=== PATIENT | male | born 1960 | race Caucasian/White ===

== ENCOUNTER 2018-05-10 18:26 | Emergency (ER) | payer MEDICAID ==
[~2018-05-10] VITALS: Ht 177.8 cm; Wt 77.2 kg
[~2018-05-10 18:26] MED LIST: CLIN300C85 PO; HYDR-569 PO; NAPR-1144 PO; NO HOME MEDS
[2018-05-10 18:43] VITALS: BP 133/79
== END 2018-05-10 19:22 | disposition left against medical advice (07) ==
LOC: ER 18:27
DX: R11.0 Nausea (principal); Z53.21 Procedure and treatment not carried out due to patient leaving prior to being seen by health care provider

== ENCOUNTER 2018-08-18 23:59 | Emergency (ER) | payer MEDICAID ==
[~2018-08-18] VITALS: Ht 182.9 cm; Wt 74.0 kg
[~2018-08-18 23:59] MED LIST changes: +HYDR-4383 PO; -HYDR-569 PO
[2018-08-19] MEDS ORDERED: HYDROcodone/acetaminophen 10/325mg tab PO ONE (00:15)
[2018-08-19] MEDS ORDERED: clindamycin phosphate 150mg/ml inj. IM ONE (00:15)
[2018-08-19] MEDS ORDERED: SULF1TAB49 PO (00:18)
[2018-08-19 00:30] VITALS: BP 132/93
== END 2018-08-19 00:49 | disposition home or self-care (01) ==
LOC: ER 23:59
DX: L03.011 Cellulitis of right finger (principal); F15.10 Other stimulant abuse, uncomplicated; Z88.0 Allergy status to penicillin; Z79.899 Other long term (current) drug therapy; Z86.14 Personal history of Methicillin resistant Staphylococcus aureus infection
CPT/HCPCS: 96372; 99283; J3490

== ENCOUNTER 2020-11-17 03:22 | Emergency (ER) | payer MEDICAID ==
[~2020-11-17] VITALS: Ht 182.9 cm; Wt 85.0 kg
[~2020-11-17 03:22] MED LIST changes: +CLIN-97 PO; -CLIN300C85 PO
[2020-11-17 03:25] VITALS: BP 143/95
--- NOTE | 2020-11-17 03:31 | NUR ---
HE WALKED OUT OF TRIAGE AFTER HE SAW HIS BP. HE SAID HE'S GOING TO GO TELL HIS BROTHER TO WAIT. BUT I THINK HE LEFT.
== END 2020-11-17 03:35 | disposition left against medical advice (07) ==
LOC: ER 03:22
DX: I10 Essential (primary) hypertension (principal); Z53.21 Procedure and treatment not carried out due to patient leaving prior to being seen by health care provider

== ENCOUNTER 2021-01-26 10:24 | Emergency (ER) | payer MEDICAID ==
[~2021-01-26] VITALS: Ht 182.9 cm; Wt 72.7 kg
[2021-01-26] MEDS ORDERED: iohexol 300mg/ml 100ml inj. ONE (11:30)
[2021-01-26 11:35] LABS: BASOPHILS # (AUTO) 0.1 X10'3 (0-0.2); BASOPHILS % (AUTO) 0.5 % (0-1); EOSINOPHILS % (AUTO) 0.1 % (0-6); HEMATOCRIT 36.4 % (42.0-52.0); HEMOGLOBIN 12.3 g/dl (14.0-17.9); LYMPHOCYTES # (AUTO) 0.6 X10'3 (1.1-4.8); LYMPHOCYTES % (AUTO) 4.1 % (21-51); MEAN CORPUSCULAR HEMOGLOBIN 28.5 PG (27.0-31.0); MEAN CORPUSCULAR HGB CONC 33.7 g/dL (33.0-36.5); MEAN CORPUSCULAR VOLUME 84.5 FL (78-98); MEAN PLATELET VOLUME 8.1 FL (7.4-10.4); MONOCYTES # (AUTO) 0.6 X10'3 (0-0.9); MONOCYTES % (AUTO) 4.3 % (2-12); PLATELET COUNT 237 X10'3 (140-440); RED CELL DISTRIBUTION WIDTH 13.3 % (11.5-14.5); WHITE BLOOD COUNT 14.3 X10'3 (4.5-11.0)
[2021-01-26 11:51] LABS: CLARITY,URINE CLOUDY (Clear); COLOR,URINE YELLOW (Yellow); GLUCOSE, URINE NEGATIVE (Neg); KETONES,URINE 15 mg/dl (Neg); LEUKOCYTE ESTERASE ,URINE NEGATIVE (Neg); NITRITES, URINE NEGATIVE (Neg); OCCULT BLOOD,URINE LARGE (Neg); PROTEIN,URINE 100 mg/dl (Neg)
[2021-01-26 11:56] LABS: ALANINE AMINOTRANSFERASE 18 U/L (12-78); ALBUMIN 2.2 G/DL (3.4-5.0); ALBUMIN/GLOBULIN RATIO 0.5 (1.1-1.5); ALKALINE PHOSPHATASE 127 IU/L (46-116); ANION GAP 10 (8-16); ASPARTATE AMINO TRANSFERASE 23 U/L (10-37); BILIRUBIN,TOTAL 0.4 MG/DL (0.1-1.0); BLOOD UREA NITROGEN 19 MG/DL (7-18); BUN/CREATININE RATIO 23.2 (5.4-32.0); CALCIUM 8.3 MG/DL (8.5-10.1); CHLORIDE 94 MMOL/L (99-107); CREATININE 0.82 MG/DL (0.60-1.10); GLUCOSE 110 MG/DL (70-104); POTASSIUM 3.2 MMOL/L (3.5-5.1); SODIUM 132 MMOL/L (135-145); TOTAL CARBON DIOXIDE 27.7 MMOL/L (24-32); TOTAL PROTEIN 6.9 G/DL (6.4-8.2); eGFR > 90 ML/MIN
[2021-01-26 11:58] LABS: TROPONIN I < 0.04 NG/ML (0.0-0.05)
[2021-01-26 12:32] LABS: UA COLLECTION TYPE URINAL
[2021-01-26 12:34] LABS: BACTERIA,URINE FEW /HPF (Neg); RBC,URINE 20-50 /HPF (0-2); SQUAMOUS EPITHELIAL CELL,UR FEW /LPF (FEW); WBC,URINE 0-4 /HPF (0-4)
[2021-01-26 12:35] LABS: MUCUS STRANDS FEW /LPF (Neg)
[2021-01-26] MEDS ORDERED: ringers solution, lacted 1,000 ML IV ONE (12:35)
[2021-01-26] MEDS ORDERED: morphine 10mg/ml inj. IV ONE (12:35)
[2021-01-26] MEDS ORDERED: HYDR-3965 PO (13:35)
[2021-01-26 14:30] VITALS: BP 122/52
[2021-01-27] MEDS ORDERED: NO HOME MEDS (16:30)
== END 2021-01-26 14:32 | disposition home or self-care (01) ==
LOC: ER 10:25
DX: S22.41XA Multiple fractures of ribs, right side, initial encounter for closed fracture (principal); S32.000A Wedge compression fracture of unspecified lumbar vertebra, initial encounter for closed fracture; J94.2 Hemothorax; M54.89 Other dorsalgia; F15.90 Other stimulant use, unspecified, uncomplicated; Z86.14 Personal history of Methicillin resistant Staphylococcus aureus infection; Z72.89 Other problems related to lifestyle; Z88.0 Allergy status to penicillin; Z79.2 Long term (current) use of antibiotics; Z79.899 Other long term (current) drug therapy; W11.XXXA Fall on and from ladder, initial encounter; Y93.89 Activity, other specified; Y92.89 Other specified places as the place of occurrence of the external cause; Y99.8 Other external cause status
CPT/HCPCS: 36415; 70450; 71260; 72125; 74177; 80053; 81001; 84484; 85025; 86885; 86900; 86901; 96361; 96374; 99285; J2270; Q9967; J7120

== ENCOUNTER 2021-01-27 12:35 | Inpatient (IN) | payer MEDICAID ==
[~2021-01-27] VITALS: Ht 182.9 cm; Wt 64.4 kg
[~2021-01-27 12:35] MED LIST changes: +HYDR-3965 PO
--- NOTE | 2021-01-27 12:49 | NUR ---
ACS PROTOCOL ORDERED, CALLED FOR EKG
--- NOTE | 2021-01-27 12:50 | NUR ---
[facility]S,[place] [address]
[2021-01-27] MEDS ORDERED: morphine 10mg/ml inj. IV ONE (13:25)
[2021-01-27] MEDS ORDERED: ondansetron/PF 4mg/2ml inj IV ONE (13:25)
[2021-01-27] MEDS ORDERED: morphine 10mg/ml inj. IM ONE (13:50)
[2021-01-27] MEDS ORDERED: ondansetron/PF 4mg/2ml inj IM ONE (13:50)
[2021-01-27 13:52] LABS: BASOPHILS % (AUTO) 0.1 % (0-1); EOSINOPHILS % (AUTO) 0.1 % (0-6); HEMATOCRIT 35.1 % (42.0-52.0); HEMOGLOBIN 11.7 g/dl (14.0-17.9); LYMPHOCYTES # (AUTO) 0.6 X10'3 (1.1-4.8); LYMPHOCYTES % (AUTO) 2.9 % (21-51); MEAN CORPUSCULAR HEMOGLOBIN 28.4 PG (27.0-31.0); MEAN CORPUSCULAR HGB CONC 33.5 g/dL (33.0-36.5); MEAN CORPUSCULAR VOLUME 84.9 FL (78-98); MONOCYTES # (AUTO) 1.3 X10'3 (0-0.9); MONOCYTES % (AUTO) 6.1 % (2-12); NEUTROPHILS # (AUTO) 18.9 X10'3 (1.8-7.7); NEUTROPHILS % (AUTO) 90.8 % (42-75); PLATELET COUNT 266 X10'3 (140-440); RED BLOOD COUNT 4.13 X10'6 (4.70-6.10); RED CELL DISTRIBUTION WIDTH 13.6 % (11.5-14.5); WHITE BLOOD COUNT 20.8 X10'3 (4.5-11.0)
--- NOTE | 2021-01-27 13:58 | NUR ---
2 RNS JUAN M AND [place] ATTEMPTED IV X 4 TIMES
--- NOTE | 2021-01-27 13:58 | NUR ---
DR OCHOA AWARE NO IV
[2021-01-27 14:23] LABS: MICROCYTOSIS 1+; PLATELET ESTIMATE NORMAL; TOTAL CELLS COUNTED 100
[2021-01-27 14:24] LABS: ALANINE AMINOTRANSFERASE 27 U/L (12-78); ALBUMIN 2.4 G/DL (3.4-5.0); ALBUMIN/GLOBULIN RATIO 0.5 (1.1-1.5); ALKALINE PHOSPHATASE 136 IU/L (46-116); ANION GAP 6 (8-16); ASPARTATE AMINO TRANSFERASE 36 U/L (10-37); BILIRUBIN,TOTAL 0.6 MG/DL (0.1-1.0); BLOOD UREA NITROGEN 13 MG/DL (7-18); BUN/CREATININE RATIO 14.8 (5.4-32.0); CALCIUM 8.6 MG/DL (8.5-10.1); CHLORIDE 92 MMOL/L (99-107); CREATININE 0.88 MG/DL (0.60-1.10); GLUCOSE 132 MG/DL (70-104); POTASSIUM 4.2 MMOL/L (3.5-5.1); SODIUM 127 MMOL/L (135-145); TOTAL CARBON DIOXIDE 28.6 MMOL/L (24-32); TOTAL PROTEIN 7.1 G/DL (6.4-8.2); eGFR 89 ML/MIN
[2021-01-27] MEDS ORDERED: bisacodyl 10mg suppository rectal RC PRN (15:20)
[2021-01-27] MEDS ORDERED: ondansetron/PF 4mg/2ml inj IV PRN (15:20)
[2021-01-27] MEDS ORDERED: magnesium Cl slow-release 64mg tablet PO PRN (15:20)
[2021-01-27] MEDS ORDERED: mag hydrox/Alum hydrox/simeth 30ml oral suspension PO PRN (15:20)
[2021-01-27] MEDS ORDERED: magnesium 2GM in 50ml NS 50 ML IV PRN (15:20)
[2021-01-27] MEDS ORDERED: acetaminophen 325mg tablet PO PRN ×2 (15:20)
[2021-01-27] MEDS ORDERED: magnesium hydroxide 30ml (MOM) UD suspension PO PRN (15:20)
[2021-01-27] MEDS ORDERED: HYDROcodone/acetaminophen 5mg/325mg tablet PO PRN (15:20)
[2021-01-27] MEDS ORDERED: acetaminophen 650mg rectal suppository RC PRN (15:20)
[2021-01-27] MEDS ORDERED: magnesium 4gm in 100ml NS 100 ML IV PRN (15:20)
[2021-01-27] MEDS ORDERED: potassium Cl 20 mEq SR tablet PO PRN ×2 (15:20)
[2021-01-27] MEDS ORDERED: HYDROcodone/acetaminophen 10/325mg tab PO PRN (15:20)
[2021-01-27] MEDS ORDERED: normal saline 1000ml 1,000 ML IV SCH (15:20)
[2021-01-27] MEDS ORDERED: ipratropium/albuterol 3ml nebule NEB PRN (15:20)
[2021-01-27] MEDS ORDERED: morphine 2 MG/ML inj. syringe IV PRN ×2 (15:20)
[2021-01-27] MEDS ORDERED: diphenhydrAMINE 25mg capsule PO PRN (15:20)
[2021-01-27] MEDS ORDERED: potassium Cl 40MEQ/1/2NS 520ml 520 ML IV PRN ×2 (15:20)
[2021-01-27 15:45] LABS: HEMOGLOBIN A1C 6.5 % (4.5-6.2)
[2021-01-27 16:07] VITALS: BP 102/55
[2021-01-27] MEDS ORDERED: NO HOME MEDS (16:30)
--- NOTE | 2021-01-27 16:38 | NUR ---
PATIENT IN HALLWAY WALKING WNL WITH ALL HIS CLOTHES ON AFTER I GAVE HIM PAIN MEDICINE AND HOOKED HIM UP TO HIS IV OF NS. HE ATTEMPTED TO LEAVE WITH HIS PIV IN HIS FOOT. SECURITY CALLED. PLATE GAUGER AND WILL, TECH AND I ESCORTED PATIENT BACK TO HIS ROOM WHERE PLATE GAUGER DEBBIE REMOVED PIV FROM FOOT. PATIENT ADVISED THAT LEAVING THE ER COULD RESULT IN HIS . PATIENT SAID "I WANT TO SMOKE". PATIENT OFFERED A NICOTINE PATCH. PATIENT AMBULATED OUT OF ER WNL AFTER SIGNING AMA FORM.
--- NOTE | 2021-01-27 16:39 | NUR ---
DR MARIA AWARE OF PATIENT LEAVING AMA
[2021-01-27] MEDS ORDERED: K and/or MAG REPLACEMENT MC SCH (20:00)
== END 2021-01-27 17:00 | disposition left against medical advice (07) | DRG 347 ==
LOC: ER 12:35 → ED HOLD 15:18 → EDBEDREQ 17:23
PROVIDERS: ADMIT Family Medicine; ATTEND Family Medicine
DX: M54.9 Dorsalgia, unspecified (principal); W18.39XA Other fall on same level, initial encounter; Y93.89 Activity, other specified; Y92.89 Other specified places as the place of occurrence of the external cause; Y99.8 Other external cause status
CPT/HCPCS: 36415; 71045; 80053; 83036; 84484; 85007; 85025; 86885; 86900; 86901; 93005; 94760; G0378; J2270; J2405; J7030

== ENCOUNTER 2021-08-11 20:43 | Emergency (ER) | payer MEDICAID ==
[~2021-08-11] VITALS: Ht 182.9 cm; Wt 81.8 kg
[~2021-08-11 20:43] MED LIST changes: -CLIN-97 PO; -HYDR-3965 PO; -HYDR-4383 PO; -NAPR-1144 PO
[2021-08-11] MEDS ORDERED: iohexol 300mg/ml 100ml inj. ONE (22:15)
[2021-08-11 23:08] LABS: BASOPHILS # (AUTO) 0.1 X10'3 (0-0.2); BASOPHILS % (AUTO) 0.9 % (0-1); EOSINOPHILS # (AUTO) 0.1 X10'3 (0-0.9); EOSINOPHILS % (AUTO) 0.8 % (0-6); HEMATOCRIT 36.3 % (42.0-52.0); HEMOGLOBIN 11.9 g/dl (14.0-17.9); LYMPHOCYTES # (AUTO) 1.2 X10'3 (1.1-4.8); LYMPHOCYTES % (AUTO) 15.3 % (21-51); MEAN CORPUSCULAR HEMOGLOBIN 26.7 PG (27.0-31.0); MEAN CORPUSCULAR HGB CONC 32.8 g/dL (33.0-36.5); MEAN CORPUSCULAR VOLUME 81.6 FL (78-98); MEAN PLATELET VOLUME 9.1 FL (7.4-10.4); MONOCYTES # (AUTO) 0.8 X10'3 (0-0.9); MONOCYTES % (AUTO) 10.6 % (2-12); NEUTROPHILS # (AUTO) 5.7 X10'3 (1.8-7.7); NEUTROPHILS % (AUTO) 72.4 % (42-75); PLATELET COUNT 288 X10'3 (140-440); RED BLOOD COUNT 4.45 X10'6 (4.70-6.10); RED CELL DISTRIBUTION WIDTH 15.9 % (11.5-14.5); WHITE BLOOD COUNT 7.9 X10'3 (4.5-11.0)
[2021-08-11 23:19] LABS: ALANINE AMINOTRANSFERASE 269 U/L (12-78); ALBUMIN/GLOBULIN RATIO 0.6 (1.1-1.5); ALKALINE PHOSPHATASE 247 IU/L (46-116); ANION GAP 7 (8-16); ASPARTATE AMINO TRANSFERASE 86 U/L (10-37); BILIRUBIN,TOTAL 0.6 MG/DL (0.1-1.0); BLOOD UREA NITROGEN 20 MG/DL (7-18); BUN/CREATININE RATIO 20.8 (5.4-32.0); CALCIUM 8.8 MG/DL (8.5-10.1); CHLORIDE 103 MMOL/L (99-107); CREATININE 0.96 MG/DL (0.60-1.10); POTASSIUM 4.5 MMOL/L (3.5-5.1); SODIUM 137 MMOL/L (135-145); TOTAL CARBON DIOXIDE 27.3 MMOL/L (24-32); TOTAL PROTEIN 7.8 G/DL (6.4-8.2); eGFR 80 ML/MIN
[2021-08-11 23:22] LABS: GLUCOSE 116 MG/DL (70-104)
[2021-08-11 23:32] LABS: CLARITY,URINE CLEAR (Clear); COLOR,URINE YELLOW (Yellow); GLUCOSE, URINE NEGATIVE (Neg); KETONES,URINE NEGATIVE (Neg); LEUKOCYTE ESTERASE ,URINE NEGATIVE (Neg); NITRITES, URINE NEGATIVE (Neg); OCCULT BLOOD,URINE SMALL (Neg); PH,URINE 5.5 (4.8-8.0); PROTEIN,URINE TRACE mg/dl (Neg)
[2021-08-11 23:37] LABS: UA COLLECTION TYPE CLN CATCH MIDSTREAM
[2021-08-11 23:41] LABS: WBC,URINE 0-4 /HPF (0-4)
[2021-08-11 23:42] LABS: BACTERIA,URINE NONE SEEN /HPF (Neg); MUCUS STRANDS MANY /LPF (Neg); RBC,URINE NONE SEEN /HPF (0-2); SPERM MODERATE /HPF (NEGATIVE); SQUAMOUS EPITHELIAL CELL,UR FEW /LPF (FEW)
[2021-08-12] MEDS ORDERED: LEVO750T46 PO (00:17)
[2021-08-12] MEDS ORDERED: levoFLOXACIN 750MG TABLET PO ONE (00:20)
[2021-08-12 00:49] VITALS: BP 125/91
== END 2021-08-12 00:45 | disposition home or self-care (01) ==
LOC: ER 20:43
DX: J90 Pleural effusion, not elsewhere classified (principal); J18.8 Other pneumonia, unspecified organism; F15.10 Other stimulant abuse, uncomplicated; Z88.0 Allergy status to penicillin; Z20.822 Contact with and (suspected) exposure to COVID-19
CPT/HCPCS: 36415; 71045; 71260; 80053; 81001; 83605; 84145; 85025; 87040; 87635; 99285; C9803; Q9967

== ENCOUNTER 2021-08-14 07:48 | Inpatient (IN) | payer MEDICAID ==
[~2021-08-14] VITALS: Ht 182.9 cm; Wt 81.7 kg
[~2021-08-14 07:48] MED LIST changes: +LEVO750T46 PO
[2021-08-14] MEDS ORDERED: aspirin 81mg tab.chew PO ONE (07:55)
[2021-08-14] MEDS ORDERED: normal saline 1000ML IV soln IV ONE (08:10)
[2021-08-14 08:33] LABS: HEMOGLOBIN 12.4 g/dl (14.0-17.9); LYMPHOCYTES # (AUTO) 0.9 X10'3 (1.1-4.8); MEAN CORPUSCULAR HEMOGLOBIN 26.7 PG (27.0-31.0); NEUTROPHILS # (AUTO) 6.7 X10'3 (1.8-7.7); WHITE BLOOD COUNT 8.3 X10'3 (4.5-11.0)
[2021-08-14 08:38] LABS: BASOPHILS # (AUTO) 0.1 X10'3 (0-0.2); BASOPHILS % (AUTO) 0.8 % (0-1); EOSINOPHILS % (AUTO) 0.6 % (0-6); HEMATOCRIT 37.6 % (42.0-52.0); LYMPHOCYTES % (AUTO) 11.4 % (21-51); MEAN CORPUSCULAR HGB CONC 33.1 g/dL (33.0-36.5); MEAN CORPUSCULAR VOLUME 80.7 FL (78-98); MEAN PLATELET VOLUME 8.3 FL (7.4-10.4); MONOCYTES # (AUTO) 0.6 X10'3 (0-0.9); MONOCYTES % (AUTO) 7.1 % (2-12); NEUTROPHILS % (AUTO) 80.1 % (42-75); PLATELET COUNT 351 X10'3 (140-440); RED BLOOD COUNT 4.65 X10'6 (4.70-6.10)
[2021-08-14 09:12] LABS: ALANINE AMINOTRANSFERASE 172 U/L (12-78); ALBUMIN/GLOBULIN RATIO 0.6 (1.1-1.5); ALKALINE PHOSPHATASE 220 IU/L (46-116); ANION GAP 9 (8-16); ASPARTATE AMINO TRANSFERASE 41 U/L (10-37); BILIRUBIN,TOTAL 0.8 MG/DL (0.1-1.0); BLOOD UREA NITROGEN 18 MG/DL (7-18); CALCIUM 8.1 MG/DL (8.5-10.1); CHLORIDE 99 MMOL/L (99-107); CREATININE 1.06 MG/DL (0.60-1.10); SODIUM 134 MMOL/L (135-145); TOTAL CARBON DIOXIDE 25.7 MMOL/L (24-32); TOTAL PROTEIN 8.3 G/DL (6.4-8.2); eGFR 72 ML/MIN
[2021-08-14 09:14] LABS: MAGNESIUM 1.9 MG/DL (1.5-2.4)
[2021-08-14 09:15] LABS: GLUCOSE 227 MG/DL (70-104)
[2021-08-14] MEDS ORDERED: vancomycin/NS 1 GM ADD-VANTAGE 250 ML IV ONE (09:50)
[2021-08-14] MEDS ORDERED: levoFLOXACIN-Levaquin 750MG/D5 150 ML IV ONE (09:50)
[2021-08-14] MEDS ORDERED: ondansetron/PF 4mg/2ml inj IV PRN (09:55)
[2021-08-14] MEDS ORDERED: magnesium 2GM in 50ml NS 50 ML IV PRN (09:55)
[2021-08-14] MEDS ORDERED: acetaminophen 325mg tablet PO PRN (09:55)
[2021-08-14] MEDS ORDERED: normal saline 1000ml 1,000 ML IV SCH (09:55)
[2021-08-14] MEDS ORDERED: potassium CL 10mEq/100ml bag 100 ML IV PRN (09:55)
[2021-08-14] MEDS ORDERED: mag hydrox/Alum hydrox/simeth 30ml oral suspension PO PRN (09:55)
[2021-08-14] MEDS ORDERED: ondansetron 4mg rapidly disintigrating tab PO PRN (09:55)
[2021-08-14] MEDS ORDERED: metoclopramide 5 mg/ml inj IV PRN (09:55)
[2021-08-14] MEDS ORDERED: magnesium Cl slow-release 64mg tablet PO PRN (09:55)
[2021-08-14] MEDS ORDERED: potassium Cl 20 mEq SR tablet PO PRN ×2 (09:55)
[2021-08-14] MEDS ORDERED: acetaminophen 650mg rectal suppository RC PRN (09:55)
[2021-08-14] MEDS ORDERED: magnesium hydroxide 30ml (MOM) UD suspension PO PRN (09:55)
[2021-08-14] MEDS ORDERED: magnesium 4gm in 100ml NS 100 ML IV PRN (09:55)
[2021-08-14 10:21] LABS: PARTIAL THROMBOPLASTIN TIME 26 SECONDS (22-32)
[2021-08-14] MEDS: vancomycin/NS 1 GM ADD-VANTAGE 250 ML IV SCH (11:46)
[2021-08-14] MEDS ORDERED: LEVO750T46 PO (13:14)
[2021-08-14 13:18] LABS: CLARITY,URINE CLEAR (Clear); COLOR,URINE YELLOW (Yellow); GLUCOSE, URINE NEGATIVE (Neg); KETONES,URINE NEGATIVE (Neg); LEUKOCYTE ESTERASE ,URINE NEGATIVE (Neg); NITRITES, URINE NEGATIVE (Neg); OCCULT BLOOD,URINE SMALL (Neg); PROTEIN,URINE TRACE mg/dl (Neg)
[2021-08-14 13:22] LABS: UA COLLECTION TYPE VOIDED
[2021-08-14] MEDS ORDERED: furosemide 40mg/4ml inj IV ONE (13:35)
[2021-08-14] MEDS ORDERED: PERFLUTREN PROTEIN-A MICROSPHR (Optison) 0.22 MG/ML 3ML VIAL IV PRN (13:35)
[2021-08-14] MEDS ORDERED: LORazepam 2 mg/ml vial IV PRN (13:35)
[2021-08-14] MEDS ORDERED: haloperidol lactate 5mg/ml inj IM PRN (13:35)
[2021-08-14] MEDS ORDERED: haloperidol 5mg tablet PO PRN (13:35)
[2021-08-14] MEDS ORDERED: nicotine 14mg patch - 24hr TD ONE (13:40)
[2021-08-14 14:14] LABS: MUCUS STRANDS MANY /LPF (Neg)
[2021-08-14 14:15] LABS: HYALINE CASTS 0-3 /LPF (NEGATIVE)
[2021-08-14 14:18] LABS: BACTERIA,URINE FEW /HPF (Neg); RBC,URINE 0-2 /HPF (0-2); WBC,URINE 0-4 /HPF (0-4)
[2021-08-14 14:19] LABS: TRANSITIONAL EPI CELLS,URINE FEW /HPF
[2021-08-14 14:20] LABS: SQUAMOUS EPITHELIAL CELL,UR FEW /LPF (FEW)
[2021-08-14 14:24] LABS: FINE GRANULAR CAST 0-3 /LPF (NEGATIVE)
[2021-08-14] MEDS: benzonatate 100mg capsule PO PRN (16:59)
[2021-08-14] MEDS: LORazepam 1 MG tablet PO PRN (18:12)
[2021-08-14] MEDS ORDERED: pneumococcal 23-VAL P-sac vacc 25 mcg/0.5ml vial IMVAC ONE (19:50)
[2021-08-14 19:53] VITALS: BP 132/92
[2021-08-14] MEDS ORDERED: FLU VACC QS2021-22(6MOS UP)/PF 60 MCG/0.5 ML SYRINGE IM ONE (19:55)
[2021-08-14] MEDS: K and/or MAG REPLACEMENT MC SCH (20:00)
[2021-08-14] MEDS: docusate sod 100mg capsule PO SCH (20:14)
[2021-08-14] MEDS: furosemide 40mg/4ml inj IV SCH (20:15)
[2021-08-14] MEDS: lactobacillus rhamnosus 10,000 MMU CELLS/CAPSULE PO SCH (20:19)
[2021-08-14] MEDS ORDERED: THIAMINE IV SCH (21:00)
[2021-08-14] MEDS ORDERED: thiamine 100mg/ml 2ml inj. IV SCH (21:00)
[2021-08-14] MEDS ORDERED: WATER IV SCH (21:00)
[2021-08-14] MEDS ORDERED: DEXTROSE 5% IV SCH (21:00)
[2021-08-14] MEDS ORDERED: VANCOMYCIN LEVEL IV ONE (23:30)
[2021-08-15] VITALS: BP 126/91
[2021-08-15] MEDS: guaiFENesin 200 MG/10 ML oral syrup UD cup PO PRN ×3 (03:04→14:24)
--- NOTE | 2021-08-15 06:24 | NUR ---
Report given , questions answered and plan of care reviewed with Jo WILSON .
[2021-08-15 07:11] LABS: BASOPHILS # (AUTO) 0.1 X10'3 (0-0.2); BASOPHILS % (AUTO) 1.4 % (0-1); EOSINOPHILS % (AUTO) 0.2 % (0-6); HEMATOCRIT 35.3 % (42.0-52.0); HEMOGLOBIN 11.6 g/dl (14.0-17.9); LYMPHOCYTES # (AUTO) 0.9 X10'3 (1.1-4.8); LYMPHOCYTES % (AUTO) 9.7 % (21-51); MEAN CORPUSCULAR HEMOGLOBIN 26.4 PG (27.0-31.0); MEAN CORPUSCULAR HGB CONC 32.9 g/dL (33.0-36.5); MEAN CORPUSCULAR VOLUME 80.4 FL (78-98); MEAN PLATELET VOLUME 9.8 FL (7.4-10.4); MONOCYTES # (AUTO) 0.7 X10'3 (0-0.9); MONOCYTES % (AUTO) 7.8 % (2-12); NEUTROPHILS # (AUTO) 7.8 X10'3 (1.8-7.7); NEUTROPHILS % (AUTO) 80.9 % (42-75); PLATELET COUNT 235 X10'3 (140-440); RED CELL DISTRIBUTION WIDTH 15.7 % (11.5-14.5); WHITE BLOOD COUNT 9.6 X10'3 (4.5-11.0)
[2021-08-15] MEDS: LORazepam 1 MG tablet PO PRN (07:32)
[2021-08-15] MEDS: docusate sod 100mg capsule PO SCH ×2 (07:32→19:44)
[2021-08-15] MEDS: multivitamins, therapeutics tablet PO SCH (07:32)
[2021-08-15] MEDS: lactobacillus rhamnosus 10,000 MMU CELLS/CAPSULE PO SCH ×2 (07:33→19:44)
[2021-08-15] MEDS: CefTRIAXone/D5W-Rocephin 1gm 50 ML IV SCH (07:33)
[2021-08-15] MEDS: furosemide 40mg/4ml inj IV SCH ×2 (07:33→19:44)
[2021-08-15] MEDS: nicotine 14mg patch - 24hr TD SCH (07:33)
[2021-08-15 07:34] LABS: ALANINE AMINOTRANSFERASE 129 U/L (12-78); ALBUMIN 2.9 G/DL (3.4-5.0); ALBUMIN/GLOBULIN RATIO 0.6 (1.1-1.5); ALKALINE PHOSPHATASE 196 IU/L (46-116); ANION GAP 11 (8-16); ASPARTATE AMINO TRANSFERASE 34 U/L (10-37); BILIRUBIN,TOTAL 0.7 MG/DL (0.1-1.0); BLOOD UREA NITROGEN 19 MG/DL (7-18); BUN/CREATININE RATIO 17.9 (5.4-32.0); CALCIUM 8.6 MG/DL (8.5-10.1); CHLORIDE 104 MMOL/L (99-107); CREATININE 1.06 MG/DL (0.60-1.10); POTASSIUM 4.1 MMOL/L (3.5-5.1); SODIUM 139 MMOL/L (135-145); TOTAL CARBON DIOXIDE 24.4 MMOL/L (24-32); TOTAL PROTEIN 7.9 G/DL (6.4-8.2); eGFR 72 ML/MIN
[2021-08-15] MEDS: thiamine inj. 200 MG in normal saline 100ml IV soln 100 ML IV SCH ×3 (07:34→21:39)
[2021-08-15 07:36] LABS: GLUCOSE 122 MG/DL (70-104)
[2021-08-15 08:00] VITALS: BP 133/94
[2021-08-15] MEDS: K and/or MAG REPLACEMENT MC SCH ×2 (08:00→20:00)
--- NOTE | 2021-08-15 09:15 | NUR ---
Dr Bello rounded to see pt however pt was unarousable to answer questions. ordered that lobectomy records from [facility] be obtained. This nurse also attempted to awaken pt for a signature on records release form, but pt is still unable to awaken at this time. Records release from [facility] faxed to [facility] HIM dept. Pt's RR 24, no distress observed. KATIE Osorio was made aware.
[2021-08-15] MEDS ORDERED: COVID-19 VACC, MRNA(PFIZER)/PF--BNT162b2 syringe IMVAC ONE (10:00)
[2021-08-15 11:00] VITALS: BP 125/85
[2021-08-15] MEDS: vancomycin/NS 1 GM ADD-VANTAGE 250 ML IV SCH ×2 (14:24)
[2021-08-15] MEDS ORDERED: iohexol 300mg/ml 100ml inj. ONE (16:22)
[2021-08-15 18:00] VITALS: BP 121/79
[2021-08-15] MEDS: lactose-reduced food (Ensure High Protein) 237ml bottle PO SCH (18:00)
--- NOTE | 2021-08-15 18:48 | NUR ---
Patient in room NOE 360. I have received report from KATIE Oviedo and had the opportunity to ask questions and assume patient care.
--- NOTE | 2021-08-15 18:49 | NUR ---
I have received report from KATIE Osorio and had the opportunity to ask questions and assume patient care.
[2021-08-15] MEDS: carVEDilol 3.125mg tablet PO SCH (19:44)
[2021-08-15] MEDS: heparin, porcine 5000 units/ml vial SQ SCH (19:45)
[2021-08-15] MEDS ORDERED: VANCOMYCIN LEVEL IV ONE (23:30)
[2021-08-16] VITALS: BP 122/88
[2021-08-16] MEDS: benzonatate 100mg capsule PO PRN (00:15)
[2021-08-16] MEDS: LORazepam 1 MG tablet PO PRN ×3 (00:15→21:02)
[2021-08-16] MEDS: vancomycin/NS 1 GM ADD-VANTAGE 250 ML IV SCH ×4 (00:16→13:25)
[2021-08-16] MEDS: heparin, porcine 5000 units/ml vial SQ SCH ×3 (00:16→16:25)
[2021-08-16 01:24] VITALS: BP 131/89
[2021-08-16 06:00] VITALS: BP 118/77
--- NOTE | 2021-08-16 06:11 | NUR ---
I agree with KATIE Seopoacher wringer operator, assessments, and report given to KATIE Osorio
--- NOTE | 2021-08-16 06:35 | NUR ---
Problems reprioritized. Patient report given, questions answered & plan of care reviewed with KATIE Osorio.
--- NOTE | 2021-08-16 07:15 | NUR ---
PAGER ID: [phone] MESSAGE: re: 360 Th[place]: pt lung sounds worsened from yesterday. new onset CHF, and recent lobectomy. please call, may need tele ~Jo gomes 3surgical [id number]
[2021-08-16] MEDS: K and/or MAG REPLACEMENT MC SCH ×2 (08:00→20:00)
[2021-08-16] MEDS ORDERED: lisinopril 5mg tablet PO SCH (08:00)
[2021-08-16] MEDS: furosemide 40mg/4ml inj IV SCH ×2 (08:00→21:03)
[2021-08-16] MEDS: lactose-reduced food (Ensure High Protein) 237ml bottle PO SCH ×3 (08:00→18:00)
[2021-08-16] MEDS: carVEDilol 3.125mg tablet PO SCH ×2 (08:01→21:02)
[2021-08-16] MEDS: multivitamins, therapeutics tablet PO SCH (08:01)
[2021-08-16] MEDS: CefTRIAXone/D5W-Rocephin 1gm 50 ML IV SCH (08:02)
[2021-08-16] MEDS: thiamine inj. 200 MG in normal saline 100ml IV soln 100 ML IV SCH ×3 (08:02→21:19)
[2021-08-16] MEDS: lactobacillus rhamnosus 10,000 MMU CELLS/CAPSULE PO SCH ×2 (08:03→21:02)
[2021-08-16] MEDS: nicotine 14mg patch - 24hr TD SCH (08:03)
[2021-08-16] MEDS: docusate sod 100mg capsule PO SCH ×2 (08:03→21:02)
[2021-08-16 09:47] LABS: BASOPHILS # (AUTO) 0.1 X10'3 (0-0.2); BASOPHILS % (AUTO) 0.9 % (0-1); EOSINOPHILS % (AUTO) 0.2 % (0-6); HEMATOCRIT 40.4 % (42.0-52.0); HEMOGLOBIN 13.2 g/dl (14.0-17.9); LYMPHOCYTES # (AUTO) 0.6 X10'3 (1.1-4.8); LYMPHOCYTES % (AUTO) 9.7 % (21-51); MEAN CORPUSCULAR HEMOGLOBIN 26.2 PG (27.0-31.0); MEAN CORPUSCULAR HGB CONC 32.6 g/dL (33.0-36.5); MEAN CORPUSCULAR VOLUME 80.4 FL (78-98); MEAN PLATELET VOLUME 8.7 FL (7.4-10.4); MONOCYTES # (AUTO) 0.6 X10'3 (0-0.9); MONOCYTES % (AUTO) 10.8 % (2-12); NEUTROPHILS # (AUTO) 4.7 X10'3 (1.8-7.7); NEUTROPHILS % (AUTO) 78.4 % (42-75); PLATELET COUNT 199 X10'3 (140-440); RED BLOOD COUNT 5.03 X10'6 (4.70-6.10); RED CELL DISTRIBUTION WIDTH 16.1 % (11.5-14.5)
--- NOTE | 2021-08-16 09:59 | NUR ---
PAGER ID: [phone] MESSAGE: [id number] anna new onset CHF, 30RR would you like pt transferred to tele? ~ Jo WILSON 3surgical [id number]
[2021-08-16] MEDS ORDERED: COVID-19 VACC, MRNA(PFIZER)/PF--BNT162b2 syringe IMVAC ONE (10:00)
--- NOTE | 2021-08-16 10:27 | NUR ---
TO obtained from dr english for transfer to tele and midline placement. PICC tobias fernandez
[2021-08-16 11:00] VITALS: BP 118/80
[2021-08-16 11:23] LABS: ALANINE AMINOTRANSFERASE 125 U/L (12-78); ALBUMIN 3.1 G/DL (3.4-5.0); ALBUMIN/GLOBULIN RATIO 0.6 (1.1-1.5); ALKALINE PHOSPHATASE 209 IU/L (46-116); ANION GAP 8 (8-16); ASPARTATE AMINO TRANSFERASE 53 U/L (10-37); BILIRUBIN,TOTAL 0.9 MG/DL (0.1-1.0); BLOOD UREA NITROGEN 25 MG/DL (7-18); BUN/CREATININE RATIO 21.6 (5.4-32.0); CALCIUM 8.5 MG/DL (8.5-10.1); CHLORIDE 96 MMOL/L (99-107); CREATININE 1.16 MG/DL (0.60-1.10); GLUCOSE 182 MG/DL (70-104); SODIUM 133 MMOL/L (135-145); TOTAL CARBON DIOXIDE 28.7 MMOL/L (24-32); TOTAL PROTEIN 8.6 G/DL (6.4-8.2); eGFR 64 ML/MIN
[2021-08-16 11:25] LABS: POTASSIUM 3.7 MMOL/L (3.5-5.1)
[2021-08-16] MEDS ORDERED: vancomycin/NS 500MG ADD-VANT 100 ML IV ONE (15:00)
[2021-08-16] MEDS: guaiFENesin 200 MG/10 ML oral syrup UD cup PO PRN (16:25)
--- NOTE | 2021-08-16 16:52 | NUR ---
TO for keyonna from dr ureña Addendum: 08/16/21 at 1655 by Jo Carrizales RN please disregard, wrong pt
[2021-08-16 18:00] VITALS: BP 134/86
--- NOTE | 2021-08-16 18:38 | NUR ---
report called to Nasima gomes ACCE
--- NOTE | 2021-08-16 18:42 | NUR ---
Patient in room NOE 360. I have received report from Jo WILSON and had the opportunity to ask questions and assume patient care.
--- NOTE | 2021-08-16 18:48 | NUR ---
Patient in room NOE 360. I have received report from KATIE Osorio and had the opportunity to ask questions and assume patient care.
--- NOTE | 2021-08-16 18:48 | NUR ---
pt to move to room 317. Addendum: 08/16/21 at 1904 by Gabbi Carmona RN pt to move to room 312.
--- NOTE | 2021-08-16 18:49 | NUR ---
I have received report from KATIE Osorio and had the opportunity to ask questions and assume patient care.
--- NOTE | 2021-08-16 21:15 | NUR ---
Patient transferred to ACCE to the care of Latha Del Real RN. Information was updated. Patient was transferred via wheelchair, with all belongings
[2021-08-16 21:21] LABS: CHOL/HDL RATIO 3.1 (0.00-4.99); CHOLESTEROL 100 MG/DL (0-200); HDL CHOLESTEROL 32 MG/DL (35-60); LDL CHOLESTEROL 60 MG/DL (50-100); TRIGLYCERIDES 46 MG/DL (20-135)
[2021-08-16 22:00] VITALS: BP 108/83
[2021-08-17] MEDS: heparin, porcine 5000 units/ml vial SQ SCH (00:25)
[2021-08-17] MEDS: LORazepam 1 MG tablet PO PRN (01:09)
[2021-08-17] MEDS: guaiFENesin 200 MG/10 ML oral syrup UD cup PO PRN (01:12)
[2021-08-17 02:00] VITALS: BP 116/83
--- NOTE | 2021-08-17 06:28 | NUR ---
Problems reprioritized. Patient report given, questions answered & plan of care reviewed with Gabrielle WILSON.
--- NOTE | 2021-08-17 06:30 | NUR ---
Patient in room MED 312. I have received report from KATIE PEREZ, and had the opportunity to ask questions and assume patient care.
--- NOTE | 2021-08-17 06:51 | NUR ---
PAGE SENT PAGER ID: [phone] MESSAGE: [phone], POLLY STANLEY HAS JUST LEFT AMA. EDUCATED PT ON MEDICAL NEEDS. PT DISCONNECTED HIMSELF AND LEFT. THANK YOU, LUCIANA Matamoros [phone]
[2021-08-17 07:17] LABS: BASOPHILS # (AUTO) 0.1 X10'3 (0-0.2); BASOPHILS % (AUTO) 1.5 % (0-1); EOSINOPHILS % (AUTO) 0.6 % (0-6); HEMATOCRIT 37.3 % (42.0-52.0); HEMOGLOBIN 12.2 g/dl (14.0-17.9); LYMPHOCYTES # (AUTO) 1.3 X10'3 (1.1-4.8); LYMPHOCYTES % (AUTO) 23.5 % (21-51); MEAN CORPUSCULAR HEMOGLOBIN 26.4 PG (27.0-31.0); MEAN CORPUSCULAR HGB CONC 32.7 g/dL (33.0-36.5); MEAN CORPUSCULAR VOLUME 80.8 FL (78-98); MEAN PLATELET VOLUME 9.5 FL (7.4-10.4); MONOCYTES # (AUTO) 0.8 X10'3 (0-0.9); NEUTROPHILS # (AUTO) 3.4 X10'3 (1.8-7.7); NEUTROPHILS % (AUTO) 60.4 % (42-75); PLATELET COUNT 235 X10'3 (140-440); RED BLOOD COUNT 4.61 X10'6 (4.70-6.10); RED CELL DISTRIBUTION WIDTH 15.8 % (11.5-14.5); WHITE BLOOD COUNT 5.6 X10'3 (4.5-11.0)
[2021-08-17 07:30] LABS: ALANINE AMINOTRANSFERASE 107 U/L (12-78); ALBUMIN 2.7 G/DL (3.4-5.0); ALBUMIN/GLOBULIN RATIO 0.5 (1.1-1.5); ALKALINE PHOSPHATASE 172 IU/L (46-116); ANION GAP 7 (8-16); ASPARTATE AMINO TRANSFERASE 71 U/L (10-37); BILIRUBIN,TOTAL 0.7 MG/DL (0.1-1.0); BLOOD UREA NITROGEN 26 MG/DL (7-18); BUN/CREATININE RATIO 22.4 (5.4-32.0); CALCIUM 8.6 MG/DL (8.5-10.1); CHLORIDE 101 MMOL/L (99-107); CREATININE 1.16 MG/DL (0.60-1.10); GLUCOSE 104 MG/DL (70-104); POTASSIUM 3.6 MMOL/L (3.5-5.1); SODIUM 137 MMOL/L (135-145); TOTAL CARBON DIOXIDE 28.8 MMOL/L (24-32); TOTAL PROTEIN 7.7 G/DL (6.4-8.2); eGFR 64 ML/MIN
[2021-08-18] MEDS ORDERED: VANCOMYCIN LEVEL IV ONE (00:30)
[2021-08-18 10:59] LABS: HBSAG SCREEN Negative (Negative); HEP A AB, IGM Negative (Negative); HEPATITIS C ANTIBODY >11.0 s/co ratio (0.0-0.9)
[2021-08-19] MEDS ORDERED: thiamine 100mg tablet PO SCH (08:00)
[2021-08-19] MEDS ORDERED: folic acid 1mg tablet PO SCH (08:00)
== END 2021-08-17 06:45 | disposition left against medical advice (07) | DRG 194 ==
LOC: ER 07:49 → ED HOLD 09:58 → UNDOADMIN 09:58 → ED HOLD 13:39 → SUR 3N 18:41 → ED HOLD 18:41 → MED 3N 08-16 21:15
PROVIDERS: ADMIT Family Medicine; ATTEND Family Medicine
DX: I11.0 Hypertensive heart disease with heart failure (principal); J96.00 Acute respiratory failure, unspecified whether with hypoxia or hypercapnia; N17.0 Acute kidney failure with tubular necrosis; I50.21 Acute systolic (congestive) heart failure; E44.0 Moderate protein-calorie malnutrition; E87.1 Hypo-osmolality and hyponatremia; R14.0 Abdominal distension (gaseous); I42.7 Cardiomyopathy due to drug and external agent; R74.01 Elevation of levels of liver transaminase levels; K76.9 Liver disease, unspecified; L03.119 Cellulitis of unspecified part of limb; R07.89 Other chest pain; F17.210 Nicotine dependence, cigarettes, uncomplicated; F10.10 Alcohol abuse, uncomplicated; F15.90 Other stimulant use, unspecified, uncomplicated; Z53.29 Procedure and treatment not carried out because of patient's decision for other reasons; Z59.00 Homelessness unspecified; Z86.14 Personal history of Methicillin resistant Staphylococcus aureus infection; Z88.0 Allergy status to penicillin; Z90.49 Acquired absence of other specified parts of digestive tract; Z71.6 Tobacco abuse counseling; Z68.24 Body mass index [BMI] 24.0-24.9, adult
CPT/HCPCS: 0001A; 36415; 36569; 71045; 71250; 76937; 80053; 80061; 80074; 80202; 81001; 83605; 83735; 83880; 84132; 84145; 84484; 85025; 85610; 85730; 87040; 87081; 91300; 93005; 93306; 96374; 99285; G0378; J0696; J1644; J1940; J1956; J2060; J3370; J3411; J3490; J7030; J7060; Q9967

== ENCOUNTER 2024-06-18 19:35 | Emergency (ER) | payer MEDICAID ==
[~2024-06-18] VITALS: Ht 182.9 cm; Wt 68.7 kg
[~2024-06-18 19:35] MED LIST changes: -LEVO750T46 PO; +LEVO750T68 PO; -NO HOME MEDS; +ORPH100T4 PO
[2024-06-18 20:18] LABS: BASOPHILS # (AUTO) 0.1 X10'3 (0-0.2); BASOPHILS % (AUTO) 0.8 % (0-1); EOSINOPHILS # (AUTO) 0.1 X10'3 (0-0.9); EOSINOPHILS % (AUTO) 2.3 % (0-6); HEMATOCRIT 44.6 % (42.0-52.0); HEMOGLOBIN 15.3 g/dl (14.0-17.9); LYMPHOCYTES # (AUTO) 1.3 X10'3 (1.1-4.8); LYMPHOCYTES % (AUTO) 20.6 % (21-51); MEAN CORPUSCULAR HEMOGLOBIN 29.3 PG (27.0-31.0); MEAN CORPUSCULAR HGB CONC 34.3 g/dL (33.0-36.5); MEAN CORPUSCULAR VOLUME 85.5 FL (78-98); MEAN PLATELET VOLUME 9.4 FL (7.4-10.4); MONOCYTES # (AUTO) 1.3 X10'3 (0-0.9); MONOCYTES % (AUTO) 19.8 % (2-12); NEUTROPHILS # (AUTO) 3.6 X10'3 (1.8-7.7); NEUTROPHILS % (AUTO) 56.5 % (42-75); PLATELET COUNT 224 X10'3 (140-440); RED BLOOD COUNT 5.21 X10'6 (4.70-6.10); RED CELL DISTRIBUTION WIDTH 13.2 % (11.5-14.5); WHITE BLOOD COUNT 6.4 X10'3 (4.5-11.0)
[2024-06-18] MEDS: normal saline 1000ml 1,000 ML IV ONE (21:08)
[2024-06-18 21:39] LABS: ALANINE AMINOTRANSFERASE 21 U/L (12-78); ALBUMIN/GLOBULIN RATIO 0.8 (1.1-1.5); ALKALINE PHOSPHATASE 98 IU/L (46-116); ANION GAP 1 (8-16); ASPARTATE AMINO TRANSFERASE 29 U/L (10-37); BILIRUBIN,TOTAL 0.5 MG/DL (0.1-1.0); BLOOD UREA NITROGEN 33 MG/DL (7-18); BUN/CREATININE RATIO 20.5 (10.0-20.0); CALCIUM 8.6 MG/DL (8.5-10.1); CHLORIDE 89 MMOL/L (99-107); CREATININE 1.61 MG/DL (0.60-1.10); GLUCOSE 116 MG/DL (70-104); PRO BRAIN NATRIURETIC PEPTIDE 549 PG/ML (0-125); SODIUM 132 MMOL/L (135-145); eCRCL 46 ML/MIN; eGFR 44 ML/MIN
[2024-06-18 21:59] LABS: POTASSIUM 2.1 MMOL/L (3.5-5.1)
[2024-06-18 22:46] LABS: MAGNESIUM 1.9 MG/DL (1.5-2.4)
[2024-06-18] MEDS: potassium Cl 20 mEq SR tablet PO STA (22:51)
[2024-06-18] MEDS: potassium CL 10mEq/100ml bag 100 ML IV SCH (22:51)
[2024-06-19 00:13] LABS: PLATELET ESTIMATE NORMAL; TOTAL CELLS COUNTED 100
[2024-06-19] MEDS: loperamide 2mg capsule PO ONE (00:34)
[2024-06-19] MEDS: thiamine 100mg tablet PO ONE (00:34)
[2024-06-19] MEDS ORDERED: OMEP20CA15 PO (03:00)
[2024-06-19 03:08] VITALS: BP 140/74; PULSE 78; RESP 18; TEMP 98.4; O2SAT 98
== END 2024-06-19 03:30 | disposition home or self-care (01) ==
LOC: ER 19:35
DX: E87.6 Hypokalemia (principal); R19.7 Diarrhea, unspecified; R53.1 Weakness; Z88.0 Allergy status to penicillin; Z79.2 Long term (current) use of antibiotics; F15.90 Other stimulant use, unspecified, uncomplicated; Z72.89 Other problems related to lifestyle
CPT/HCPCS: 36415; 71045; 80053; 83735; 83880; 84484; 85007; 85025; 93005; 96361; 96365; 96366; 99285; J3480; J7030

== ENCOUNTER 2024-11-26 13:54 | Emergency (ER) | payer MEDICAID ==
[~2024-11-26] VITALS: Ht 182.9 cm; Wt 77.3 kg
[~2024-11-26 13:54] MED LIST changes: +OMEP20CA15 PO
[2024-11-26 13:59] VITALS: BP 137/81; PULSE 102; RESP 18; TEMP 98.3; O2SAT 98
== END 2024-11-26 16:49 | disposition left against medical advice (07) ==
LOC: ER 13:55
DX: R20.0 Anesthesia of skin (principal); Z88.0 Allergy status to penicillin; Z53.21 Procedure and treatment not carried out due to patient leaving prior to being seen by health care provider

== ENCOUNTER 2024-12-21 09:32 | Emergency (ER) | payer MEDICAID ==
[~2024-12-21] VITALS: Ht 182.9 cm; Wt 77.8 kg
[2024-12-21 09:36] VITALS: BP 146/88; PULSE 83; RESP 18; O2SAT 98
[2024-12-21 09:59] VITALS: TEMP 97.9
== END 2024-12-21 10:02 | disposition home or self-care (01) ==
LOC: ER 09:33
DX: Z00.8 Encounter for other general examination (principal); Z76.0 Encounter for issue of repeat prescription; F15.90 Other stimulant use, unspecified, uncomplicated; Z88.0 Allergy status to penicillin
CPT/HCPCS: 99281

== ENCOUNTER 2025-04-12 20:07 | Emergency (ER) | payer MEDICAID ==
[~2025-04-12] VITALS: Ht 182.9 cm; Wt 78.2 kg
--- NOTE | 2025-04-12 20:21 | ELECTROCARDIOGRAPH REPORT ---
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 Cristian Ramey Measurements Intervals [place] Rate: 99 P: 63 CA: 185 QRS: 66 QRSD: 106 T: -16 QT: 381 QTc: 489 Interpretive Statements Sinus rhythm Probable left atrial enlargement Abnormal inferior Q waves Borderline T abnormalities, lateral leads Borderline prolonged QT interval Electronically Signed On 04-12-2025 22:09:[address] Cristian Ramey Please click the below link to view image of tracing.
[2025-04-12 20:28] VITALS: BP 138/92; PULSE 96; RESP 22; TEMP 98; O2SAT 97
--- NOTE | 2025-04-12 20:53 | RADIOLOGY REPORT ---
CHEST RADIOGRAPH Indication: CP Technique: 1 view Comparison: DI CHEST,SINGLE VIEW on DOS: 06/18/24, CT CHEST on DOS: 08/15/21, CHEST,SINGLE VIEW on DOS : 08/14/21, CHEST,SINGLE VIEW on DOS: 08/11/21, CHEST,SINGLE VIEW on DOS: 01/27/21 FINDINGS: Lines and Tubes: None Lungs: Similar bilateral interstitial opacities with improved airspace disease in the right lung base . Pleura: Decreased right pleural effusion with trace residual. More conspicuous small left pleural eff usion. Cardiomediastinal contours: Similar moderate cardiomegaly. Aortic atherosclerosis. Other: No acute osseous abnormality. IMPRESSION: 1. Redemonstrated heart failure pattern with decreased right pleural effusion and airspace disease, a nd slightly more conspicuous left pleural effusion.
[2025-04-12 21:01] LABS: MEAN PLATELET VOLUME 8.5 FL (7.4-10.4); RED CELL DISTRIBUTION WIDTH 15.8 % (11.5-14.5)
[2025-04-12 21:14] LABS: CREATININE 1.45 MG/DL (0.60-1.10); PRO BRAIN NATRIURETIC PEPTIDE 7266 PG/ML (0-125); TOTAL CARBON DIOXIDE 23.2 MMOL/L (24-32); eCRCL 58 ML/MIN; eGFR 49 ML/MIN
[2025-04-14] MEDS ORDERED: FOLI1TAB27 PO (16:20)
[2025-04-14] MEDS ORDERED: BUDE0.5A3 (16:20)
[2025-04-14] MEDS ORDERED: SACU1TAB PO (16:20)
[2025-04-14] MEDS ORDERED: GABA-530 PO (16:20)
[2025-04-14] MEDS ORDERED: CARV3.122 PO (16:20)
[2025-04-14] MEDS ORDERED: FURO40TA4 PO (16:20)
[2025-04-14] MEDS ORDERED: LANTUS SQ (16:20)
[2025-04-14] MEDS ORDERED: TIOT4MIS2 PO (16:20)
== END 2025-04-13 01:28 | disposition left against medical advice (07) ==
LOC: ER 20:08
DX: R06.02 Shortness of breath (principal); R53.1 Weakness; Z88.0 Allergy status to penicillin; Z53.21 Procedure and treatment not carried out due to patient leaving prior to being seen by health care provider
CPT/HCPCS: 36415; 71045; 80048; 83880; 84484; 85025; 93005

== ENCOUNTER 2025-04-13 08:28 | Inpatient (IN) | payer MEDICAID ==
[~2025-04-13] VITALS: Ht 177.8 cm; Wt 75.5 kg
[2025-04-13] VITALS (8 sets, daily range): BP systolic 120–136; BP diastolic 92; PULSE 79–109; RESP 16–24; TEMP 97.6–98; O2SAT 91–98
--- NOTE | 2025-04-13 08:46 | ELECTROCARDIOGRAPH REPORT ---
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 Yoel Roca Measurements Intervals [place] Rate: 99 P: 66 [place]: 187 QRS: 43 QRSD: 105 T: 52 QT: 396 QTc: 509 Interpretive Statements Sinus rhythm LAE, consider biatrial enlargement Borderline T wave abnormalities Prolonged QT interval Electronically Signed On 04-13-2025 22:09:[address] Yoel Roca Please click the below link to view image of tracing.
[2025-04-13 08:56] LABS: MEAN PLATELET VOLUME 9.3 FL (7.4-10.4); RED CELL DISTRIBUTION WIDTH 15.5 % (11.5-14.5)
[2025-04-13 09:22] LABS: CREATININE 1.18 MG/DL (0.60-1.10); TOTAL CARBON DIOXIDE 22.9 MMOL/L (24-32); eCRCL 67 ML/MIN; eGFR 63 ML/MIN
[2025-04-13 09:26] LABS: PRO BRAIN NATRIURETIC PEPTIDE 5432 PG/ML (0-125)
--- NOTE | 2025-04-13 09:43 | RADIOLOGY REPORT ---
CHEST RADIOGRAPH Indication: CP Technique: Single frontal view of the chest was obtained Comparison: DI CHEST,SINGLE VIEW on DOS: 04/12/25, DI CHEST,SINGLE VIEW on DOS: 06/18/24, CT CHEST on D OS: 08/15/21, CHEST,SINGLE VIEW on DOS: 08/14/21, CHEST,SINGLE VIEW on DOS: 08/11/21 FINDINGS: Lines and Tubes: None Lungs: No focal consolidation. Pleura: No effusion. No pneumothorax. Cardiomediastinal contours: Cardiomegaly. Bones: No acute osseous abnormality. IMPRESSION: Cardiomegaly with CHF
--- NOTE | 2025-04-13 10:11 | Physician Documentation ---
History of Present Illness General Chief Complaint: Chest Pain Stated Complaint: CP Time Seen by MD: 10:01 Primary Medical Doctor: NONE Mode of Arrival: EMS, Stretcher History of Present Illness Initial Comments The patient is a 64-year-old male with a history of methamphetamine use disorder, CHF who presents with shortness of breath. The patient was here yesterday but left against medical advice because I was breathing better. He returns today quite short of breath and would like to be admitted for such. He has several prescribed medications but has not been taking them. Medication Reconciliation Allergies: Coded Allergies: Penicillins (Verified Allergy, Unknown, 12/21/24) Scheduled Levofloxacin (Levofloxacin), 1 TAB PO DAILY, (Reported) Omeprazole (Omeprazole), 1 CAP PO DAILY Scheduled PRN Orphenadrine Citrate (Norflex), 1 TAB PO Q12H PRN PRN for muscle spasms Past Medical History Past Medical History: MRSA Abscess Past Surgical History: noncontributory Alcohol Use: Occasionally Drug Use: methamphetamine Lives In: Home Review of Systems ROS Constitutional: Denies chills, fatigue, fever, weight gain or weight loss. HEENT: Denies hearing loss, sinus pressure or visual changes. Respiratory: Cough and shortness of breath. Cardiovascular: Denies chest pain, pain while walking (claudication), edema or palpitations. Gastrointestinal: Denies abdominal pain, blood in stool, constipation, diarrhea, heartburn, loss of appetite, nausea or vomiting. Genitourinary: Denies painful urination (dysuria), excessive amount of urine (polyuria) or urinary frequency. Metabolic/Endocrine: Denies cold intolerance, heat intolerance, excessive thirst (polydipsia) or excessive hunger (polyphagia). Neurological: Denies dizziness, extremity numbness, extremity weakness, headaches, seizures or tremors. Psychiatric: Denies anxiety or depression. Integumentary: Denies breast discharge, breast lump, hives, mole change(s), rash or skin lesion. Musculoskeletal: Denies back pain, joint pain, joint swelling or neck pain. Hematologic: Denies easily bleeding, easily bruises, lymphedema or issues with blood clots. Immunologic: Denies food allergies or seasonal allergies. Physical Exam Physical Exam Vital Signs: Temperature: 97.7, Source: Oral, Heart Rate: 105, Respiratory Ra te: 20, BP: 145/91, Pulse Oximetry: 100, Weight: 78.400 Oxygen Flow Rate: 0 Physical Exam Physical Exam Vitals and nursing note reviewed. Constitutional: General: Patient is awake, alert, oriented x 4 in no acute distress and well appearing. Speech is clear and lucid. Appearance: Normal appearance. Patient is not ill-appearing, toxic-appearing or diaphoretic. HENT: Head: Normocephalic and atraumatic. Mouth/Throat: Mouth: Mucous membranes are moist. Pharynx: Oropharynx is clear. Eyes: General: No scleral icterus. Extraocular Movements: Extraocular movements intact. Pupils: Pupils are equal, round, and reactive to light. Neck: Supple, no Kernig or Brudzinski sign. Cardiovascular: Rate and Rhythm: Normal rate and regular rhythm. Heart sounds: No murmur heard. Pulmonary: Effort: No respiratory distress. Breath sounds: Bilateral wheezes and rales Abdominal: General: There is no distension. Palpations: There is no fluid wave, hepatomegaly or mass. Tenderness: There is no abdominal tenderness. There is no guarding. Musculoskeletal: General: No swelling or deformity. Skin: Coloration: Skin is not jaundiced. Findings: No erythema or rash. Neurological: Mental Status: Patient is alert. Progress Results/Orders Results/Orders Orders - ALBERTO HERNADEZ MD Chest,Single View (04/13/25 08:30) Monitor (04/13/25 08:30) Saline Lock (04/13/25 08:30) Oxygen (04/13/25 08:30) * Rt Notification Q1H (04/13/25 10:27) Page Hospitalist (04/13/25 10:29) Completed Orders - ALBERTO HERNADEZ MD Chest,Single View (04/13/25 08:30) Cbc/Diff (04/13/25 08:30) BMP (04/13/25 08:30) PBNP (04/13/25 08:30) Electrocardiogram (04/13/25 08:30) Hs Troponin I W Calculations (04/13/25 08:30) Hs Troponin I W Calculations (04/13/25 10:30) Furosemide Inj (Lasix Inj) (04/13/25 10:30) Ipratropium/Albuterol Nebule (Ipratrop/A (04/13/25 10:27) Medications Received in ER Medications (Trade) Dose Ordered Sig/Linh Route PRN Reason Start Time Stop Time Status Last Admin Dose Admin (Lasix inj) 60 mg ONCE ONCE IV 04/13/25 10:30 04/13/25 10:31 DC 04/13/25 10:48 60 MG (ipratrop/ albuterol 0.5-3(2.5) MG/3ml nebule) 3 ml ONCE STAT NEB 04/13/25 10:27 04/13/25 10:30 DC 04/13/25 10:38 3 ML Vital Signs 04/13/25 04/13/25 04/13/25 04/13/25 08:31 08:52 09:23 10:38 Temp 97.7 Pulse 87 105 101 Resp 16 16 20 24 B/P (MAP) 157/101 145/91 (109) Pulse Ox 96 100 96 O2 Delivery Room Air* O2 Flow Rate 0 0 FiO2 21 04/13/25 04/13/25 04/13/25 10:48 11:08 12:05 Pulse 99 106 97 Resp 24 30 16 B/P (MAP) 147/86 (106) 118/91 (100) Pulse Ox 98 97 95 O2 Delivery Room Air* O2 Flow Rate 0 0 FiO2 21 Laboratory Tests Test 04/13/25 08:43 04/13/25 10:50 White Blood Count 9.3 Red Blood Count 5.33 Hemoglobin 14.6 Hematocrit 43.7 Mean Corpuscular Volume 82.1 Mean Corpuscular Hemoglobin 27.3 Mean Corpuscular Hemoglobin Concent 33.3 Red Cell Distribution Width 15.5 H Platelet Count 218 Mean Platelet Volume 9.3 Neutrophils (%) (Auto) 77.6 H Lymphocytes (%) (Auto) 10.1 L Monocytes (%) (Auto) 11.7 Eosinophils (%) (Auto) 0.1 Basophils (%) (Auto) 0.5 Neutrophils # (Auto) 7.2 Lymphocytes # (Auto) 0.9 L Monocytes # (Auto) 1.1 H Eosinophils # (Auto) 0.0 Basophils # (Auto) 0.0 CBC Comment Sodium Level 135 Potassium Level 4.4 Chloride Level 100 Carbon Dioxide Level 22.9 L Anion Gap 12 Blood Urea Nitrogen 22 H Creatinine 1.18 H Estimated GFR/1.73 m2 63 BUN/Creatinine Ratio 18.6 Glucose Level 91 Calcium Level 8.9 Troponin I High Sensitivity 17 17 Troponin I High Sens Percent Delta 46 0 Troponin I Hi Sens Absolute Change -15 0 Pro-B-Type Natriuretic Peptide 5432 H Albumin 3.9 Chemistry Comments Medical Decision Making Findings This 64-year-old male with methamphetamine use disorder presents with shortness of breath. CHEST X-RAY FINDINGS: X-rays were interpreted by me. The lungs show evidence of CHF with cardiomegaly. IMPRESSION: CHF and cardiomegaly . EKG medically necessary in the evaluation of shortness of breath and interpreted by me at the time of patient evaluation. Rhythm is sinus rhythm with a rate of 99. Normal axis prolonged QT interval Impression: Abnormal EKG. Going to start the patient on Lasix and get him admitted for CHF. Departure Disposition: ADMITTED INPATIENT Admitted to Inpatient Unit: to hospitalist Impression: Primary Impression: CHF (congestive heart failure) Condition: Fair Referrals: NO PRIMARY CARE PROVIDER (PCP) Signature Scribe Signature: . Attestation: . ALBERTO HERNADEZ MD Apr 13, 2025 10:11
[2025-04-13] MEDS: ipratropium/albuterol 3ml nebule NEB STA (10:38)
[2025-04-13] MEDS: furosemide 10 MG/1 ML 10ml inj IV ONE (10:48)
[2025-04-13] MEDS ORDERED: magnesium Cl slow-release 64mg tablet PO PRN (15:15)
[2025-04-13] MEDS ORDERED: magnesium hydroxide 30ml (MOM) UD suspension PO PRN (15:15)
[2025-04-13] MEDS ORDERED: potassium Cl 20 mEq SR tablet PO PRN ×2 (15:15)
[2025-04-13] MEDS ORDERED: mag hydrox/Alum hydrox/simeth 30ml oral suspension PO PRN (15:15)
[2025-04-13] MEDS ORDERED: ondansetron/PF 4mg/2ml inj IV PRN (15:15)
[2025-04-13] MEDS ORDERED: magnesium sulf-water 2g/50mL 50 ML IV PRN (15:15)
[2025-04-13] MEDS ORDERED: potassium Cl 40MEQ/1/2NS 520ml 520 ML IV PRN (15:15)
[2025-04-13] MEDS ORDERED: magnesium sulf-water 4G/100mL 100 ML IV PRN (15:15)
[2025-04-13] MEDS ORDERED: ipratropium/albuterol 3ml nebule NEB PRN (15:35)
[2025-04-13] MEDS ORDERED: dextrose 50%-water 50ml dispensing syringe IV PRN ×3 (15:50)
[2025-04-13] MEDS ORDERED: haloperidol lactate 5mg/ml inj IM PRN (15:50)
[2025-04-13] MEDS ORDERED: glucagon, human recombinant 1mg kit SUBCUT PRN (15:50)
[2025-04-13] MEDS ORDERED: DEXTROSE 15 GM of carb/4 tabs (each vial/BOTTLE has 4 tablets) PO PRN ×2 (15:50)
[2025-04-13] MEDS: INSULIN LISPRO 100 UNIT/ML INSULN.PEN MULTI-DOSE SQ SCH ×2 (17:00→18:00)
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
[2025-04-13] MEDS: docusate sod 100mg capsule PO SCH (18:37)
[2025-04-13] MEDS ORDERED: guaiFENesin 200 MG/10 ML oral syrup UD cup PO PRN (19:00)
[2025-04-13] MEDS: ipratropium/albuterol 3ml nebule NEB SCH (19:00)
[2025-04-13] MEDS: nicotine 14mg patch - 24hr TD SCH (19:00)
[2025-04-13] MEDS: heparin, porcine 5000 units/ml vial SQ SCH (19:29)
[2025-04-13] MEDS: furosemide 10 MG/1 ML 10ml inj IV SCH (19:31)
[2025-04-13] MEDS: methylPREDNISolone sod succ/PF 40mg inj. IV SCH (19:33)
[2025-04-13] MEDS: K and/or MAG REPLACEMENT MC SCH (19:34)
[2025-04-13] MEDS: thiamine 100mg/ml 2ml inj. IV SCH (21:54)
[2025-04-13] MEDS: folic acid 1mg/0.2ml inj IV SCH (21:55)
[2025-04-13] MEDS: insulin glargine (Lantus) pen - multi-dose SQ SCH (21:56)
[2025-04-14] VITALS (17 sets, daily range): BP systolic 111–126; BP diastolic 69–85; PULSE 84–96; RESP 13–24; TEMP 97–97.9; O2SAT 91–100
[2025-04-14 03:22] LABS: MEAN PLATELET VOLUME 8.9 FL (7.4-10.4); RED CELL DISTRIBUTION WIDTH 15.9 % (11.5-14.5)
[2025-04-14 03:45] LABS: CHOL/HDL RATIO 5.6 (0.00-4.99); CREATININE 1.08 MG/DL (0.60-1.10); LDL CHOLESTEROL 111 MG/DL (50-100); TOTAL CARBON DIOXIDE 27.4 MMOL/L (24-32); eCRCL 73 ML/MIN; eGFR 69 ML/MIN
[2025-04-14 08:59] LABS: ETHANOL < 10 MG/DL (<10)
[2025-04-14] MEDS: INSULIN LISPRO 100 UNIT/ML INSULN.PEN MULTI-DOSE SQ SCH ×2 (10:03→14:19)
[2025-04-14] MEDS: EMPAGLIFLOZIN 10 MG TABLET PO SCH (10:05)
[2025-04-14 11:01] LABS: INR 1.9 INR
--- NOTE | 2025-04-14 12:25 | RADIOLOGY REPORT ---
CTA Chest with intravenous contrast INDICATION: shortness of breath COMPARISON: CT CHEST on DOS: 08/15/21 TECHNIQUE: Multidetector spiral CTA of the chest was performed of the chest with 100 cc of omnipaque 350 intravenous contrast. PULMONARY ANGIOGRAPHY PROTOCOL was utilized using a bolus-tracking techniqu e centered on the main pulmonary artery. Coronal and sagittal multiplanar and MIP reformats were perf ormed. Radiation Dose : 1. Chest: CTDI volume is 21.8 mGy. Dose-length product is 745.4 mGy*cm The dose indicators for CT are the volume Computed Tomography (CT) Dose Index (CTDIvol) and the Dose Length Product (DLP), and are measured in units of mGy and mGy-cm, respectively. These indicators are not patient dose, but values generated from the CT scanner acquisition factors. The report includes radiation exposure data for exposures received during this examination. FINDINGS: Pulmonary artery: No central, lobar or proximal segmental pulmonary embolus. Lower neck: Unremarkable thyroid. Lungs: Bilateral lower lobe atelectasis. Bilateral increased interstitial prominence. Central airways: Patent. Pleura: No pneumothorax. No pleural effusions. Heart/Vascular Structures: The heart is enlarged. No pericardial effusion. Thoracic aorta is normal i n caliber. No aneurysm or dissection. Lymph Nodes: No mediastinal or hilar lymphadenopathy. Esophagus:Grossly unremarkable. Musculoskeletal: Multiple old right rib fractures. Severe T7 compression deformity of indeterminate a ge foot new since prior CT from 2020. Body wall: Unremarkable. Upper abdomen: Unremarkable. IMPRESSION: 1. No evidence of pulmonary embolism. 2. Cardiomegaly. 3. Pulmonary vascular congestion. 4. Severe T7 compression fracture new since prior CT from 2020 but of indeterminate age.
[2025-04-14] MEDS: INSULIN LISPRO 100 UNIT/ML INSULN.PEN MULTI-DOSE SQ STA (13:15)
[2025-04-14 14:52] LABS: LEUKOCYTE ESTERASE ,URINE NEGATIVE (Neg); NITRITES, URINE NEGATIVE (Neg); OCCULT BLOOD,URINE TRACE-INTACT (Neg)
[2025-04-14 15:02] LABS: URINE AMPHETAMINE SCREEN NEGATIVE (Neg); URINE BARBITUATE SCREEN NEGATIVE (Neg); URINE BENZODIAZEPINES SCREEN NEGATIVE (Neg); URINE CANNABINOID SCREEN NEGATIVE (Neg); URINE COCAINE SCREEN NEGATIVE (Neg); URINE METHADONE SCREEN NEGATIVE (Neg); URINE OPIATE SCREEN NEGATIVE (Neg); URINE PHENCYCLIDINE SCREEN NEGATIVE (Neg)
[2025-04-14 15:03] LABS: UA COLLECTION TYPE NON-SPECIFIED
[2025-04-14 15:07] LABS: SQUAMOUS EPITHELIAL CELL,UR NONE SEEN /LPF (FEW)
[2025-04-14 15:10] LABS: RENAL CELLS, URINE FEW /HPF
--- NOTE | 2025-04-14 15:32 | VASCULAR REPORT ---
Bilateral lower extremity venous Doppler INDICATION: Pain and swelling TECHNIQUE: Duplex venous sonography was performed with real-time and flow sensitive images submitted for evaluation. FINDINGS: Normal phasic venous flow. Veins are fully compressible. No filling defects. IMPRESSION: 1. No evidence of deep vein thrombosis.
--- NOTE | 2025-04-14 16:18 | RADIOLOGY REPORT ---
Ultrasound abdomen INDICATION: elevated LFTs Technique: 2-D real-time ultrasound was performed with axial and sagittal images submitted for evalu ation. FINDINGS: The liver is upper limits of normal in size but echogenic in appearance. No gallstones or gallbladder wall thickening. No biliary dilatation. Common bile duct measures 5 mm Kidneys are normal in size without mass stone or hydronephrosis. Limited visualization of the pancreas due to overlying bowel gas. No free fluid. No abnormalities of the aorta or inferior vena cava. IMPRESSION: 1. Hepatic steatosis. No evidence of focal hepatic mass. No evidence of biliary obstruction
[2025-04-14] MEDS ORDERED: TIOT4MIS2 PO (16:20)
[2025-04-14] MEDS ORDERED: SACU1TAB PO (16:20)
[2025-04-14] MEDS ORDERED: LANTUS SQ (16:20)
[2025-04-14] MEDS ORDERED: BUDE0.5A3 (16:20)
[2025-04-14] MEDS ORDERED: CARV3.122 PO (16:20)
[2025-04-14] MEDS ORDERED: GABA-530 PO (16:20)
[2025-04-14] MEDS ORDERED: FOLI1TAB27 PO (16:20)
[2025-04-14] MEDS ORDERED: FURO40TA4 PO (16:20)
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
--- NOTE | 2025-04-14 18:30 | CARDIOLOGY REPORT ---
APPROVED REPORT EXAM: Comprehensive 2D, Doppler, and color-flow Echocardiogram. 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 125.9 cm/s AoV VTI 22.7 cm AO Peak GR. 6.3 mmHg AO Mean GR. 4 mmHg LVOT VTI 17.91 cm LVOT Peak Jerome. 89.2 cm/s JENNIFER(VTI)/BSA 2.19 cm2/m2 JENNIFER (VTI) 2.19 cm2 Mitral Valve MV E Velocity 49.9 cm/s MV Peak Gr. 1 mmHg MV DECEL TIME 80 ms MV A Velocity 86.3 cm/s MV PHT 36 ms E/A Ratio 0.6 MVA (PHT) 6.11 cm2 MV VMax52.3 cm/s TDI Lateral E' P. V9.88 cm/s E/Lateral E' 5.1 Tricuspid Valve TR P. Velocity 305 cm/s RAP ESTIMATE 10 mmHg TR Peak Gr. 37 mmHg RVSP 47 mmHg LEFT VENTRICLE Left ventricle is moderately dilated with normal wall thickness. Overall systolic function is severel y decreased (known). LVEF is approximately 30-35%. RIGHT VENTRICLE Right ventricle is mildly dilated with decreased function. Elevated right heart pressures with an RVS P of 47 mmHg. ATRIA Left atrium is moderate to severely dilated. The right atrium size is normal. AORTIC VALVE Trileaflet AV appears mildly sclerotic without stenosis. Trivial insufficiency. MITRAL VALVE Mild mitral annular calcification without stenosis. Trace regurgitation. TRICUSPID VALVE The tricuspid valve is normal in structure with mild regurgitation. PULMONIC VALVE The pulmonary valve is normal in structure with physiologic insufficiency. GREAT VESSELS The aortic root is normal in size. The ascending aorta is normal in size. The IVC is normal in size a nd collapses >50% with inspiration. PERICARDIUM Normal pericardium. No effusion. Other Information Study Quality: Adequate Conclusion Left ventricle is moderately dilated with normal wall thickness. Overall systolic function is severe ly decreased (known). LVEF is approximately 30-35%. Right ventricle is mildly dilated with decreased function. Elevated right heart pressures with an RVS P of 47 mmHg. Left atrium is moderate to severely dilated. Trileaflet AV appears mildly sclerotic without stenosis. Trivial insufficiency. Mild mitral annular calcification without stenosis. Trace regurgitation. The tricuspid valve is normal in structure with mild regurgitation. Normal pericardium. No effusion.
[2025-04-14] MEDS: insulin glargine (Lantus) pen - multi-dose SQ SCH (20:36)
--- NOTE | 2025-04-14 20:55 | PROGRESS NOTE- Residence ---
Progress Note - Resident Providers to CC Resident Creating Document: ALLEGRA HINDS RES ~ Antibiotic Timeout Antibiotic Ordered?: No Subjective No new overnight events recorded. Patient is very restless, constantly asking for food. Consider Cardiology. Awaiting recommendations. Objective Vital Signs Date Time Temp Pulse Resp B/P (MAP) Pulse Ox O2 Delivery O2 Flow Rate FiO2 04/14/25 20:02 91 20 Room Air 04/14/25 19:49 95 0 21 04/14/25 18:00 97.5 119/75 (90) Result Diagram: 04/14/25 0305 04/14/25 0305 General: General: sleepy, disheveled, in acute respiratory distress HEENT: PERRLA, no icterus, pallor, lymphadenopathy, carotid bruit Respiratory system: Bilateral vesicular breath sounds heard, bilateral basal Creps present, an oblique surgical scar present in the right lower chest region CVS: S1-S2 heard, no murmurs/rubs/gallop GI: Soft, nontender, no organomegaly, no guarding/rigidity, bowel sounds present Neuro: No focal neurological deficits present Extremities: No edema cyanosis clubbing Musculoskeletal: No deformities Skin: Warm and dry Pysch: Restless, normal affect and mood Coagulation Studies Laboratory Tests Test 04/13/25 21:04 04/14/25 10:36 D-Dimer 3.75 MG/L FEU (0-0.50) H D-Dimer Comment Prothrombin Time 18.0 SECONDS (9.0-12.0) H INR International Normalized Ratio 1.9 INR Coagulation Comments Assessment Assessment 64 year old homeless male patient presented to ED with SOB due to acute exacerbation of heart failure with reduced ejection fraction. Plan Plan Acute hypoxemic respiratory failure Acute exacerbation of HFrEF Possible Acute COPD exacerbation Meth induced cardiomyopathy Consulted cardiology- Dr. Scott. Awaiting recommendations. LifeVest started. Chest x-ray: Cardiomegaly with CHF Echo - EF 30-35%, RVSP 49 mmHg. Elevated proBNP Follow up with repeat echo, lipid panel Continue IV Lasix 40 mg b.i.d. re-evaluate in a.m. and titrate Lasix as required Optimization with GDM T: Carvedilol 3.125 mg p.o. b.i.d., Jardiance 10 mg p.o. daily, losartan 25 mg daily p.o., Aldactone 25 mg daily p.o. DuoNeb q.2h p.r.n., q.4h scheduled IV Solu-Medrol 40 mg b.i.d. Robitussin 100 mg PO q.6h PRN for cough Strict Is&Os Pulmonary embolism ruled out with CTA chest. Possible Gastroenteritis, under evaluation Follow up with C diff and stool studies Prerenal Acute kidney injury probably secondary to renal tubular stasis Elevated BUN and creatinine Continue to monitor BMP Currently patient appears to be fluid overloaded, therefore fluid restriction Follow up with urine Bessie raymundo Diabetes mellitus type 1, insulin-dependent A1c: 6.9 On Lantus 20 units SC q.h.s., 5 units Humalog fixed dose and high dose supplemental insulin protocol. HTN Blood pressure stable with carvedilol, losartan, Lasix. Continue the same. Substance abuse disorder History of Methamphetamine use Nicotine use disorder Alcohol use disorder Homeless Follow up with U tox On alcohol withdrawal protocol guest services assistant consult History of MRSA in wound Isolation precautions if required Transaminasemia History of hepatitis Increased ALT, AST, bilirubin. Follow up with ultrasound abdomen and MRCP. Albumin, INR, platelets within normal limits acetaminophen, salicylate levels normal ordered for hepatitis A,B,C screening Code Status: DNR DVT Prophylaxis: Heparin Analgesia/Sedation: Tylenol Lines/Tubes: PIV Nutrition: Heart healthy diet PT: Ordered Prognosis: Guarded Disposition: Continue care in PCU. Awaiting recommendations from Cardiology. LifeVest ordered. Allegra Hinds MD Internal Medicine Resident PGY-1 This note has been fully reviewed and amended by me. Isadora Ayala MD Internal Medicine Resident, PGY-2 Date of Service: Apr 14, 2025 Billing Provider: THA MARIA MD, PREETHI, RES Apr 14, 2025 20:55 ISADORA AYALA, RES Apr 15, 2025 20:24
[2025-04-15] VITALS (13 sets, daily range): BP systolic 112–129; BP diastolic 74–84; PULSE 83–94; RESP 13–22; TEMP 97.3–97.9; O2SAT 88–100
[2025-04-15 06:49] LABS: MEAN PLATELET VOLUME 8.9 FL (7.4-10.4); RED CELL DISTRIBUTION WIDTH 16.1 % (11.5-14.5)
[2025-04-15 06:52] LABS: CREATININE 1.26 MG/DL (0.60-1.10); TOTAL CARBON DIOXIDE 25.7 MMOL/L (24-32); eCRCL 63 ML/MIN; eGFR 58 ML/MIN
[2025-04-15] MEDS ORDERED: thiamine tablet PO (11:19)
[2025-04-15] MEDS ORDERED: SPIR25TA PO (11:19)
[2025-04-15] MEDS ORDERED: LANTUS SQ (11:19)
[2025-04-15] MEDS ORDERED: CARV3.122 PO (11:19)
[2025-04-15] MEDS ORDERED: FURO40TA4 PO (11:19)
[2025-04-15] MEDS ORDERED: EMPA10TA PO (11:19)
[2025-04-15] MEDS ORDERED: INSU100V11 SQ (11:19)
[2025-04-15] MEDS ORDERED: SACU1TAB PO (11:19)
[2025-04-15] MEDS ORDERED: ROSU20TA98 PO (11:19)
[2025-04-15] MEDS: potassium Cl 20 mEq SR tablet PO ONE (14:17)
--- NOTE | 2025-04-15 17:49 | PROGRESS NOTE- Residence ---
Progress Note - Resident Providers to CC Resident Creating Document: ALLEGRA HINDS RES ~ Antibiotic Timeout Antibiotic Ordered?: No Subjective Patient was seen and examined at bedside today. No new overnight events recorded. He got a LifeVest. Patient was initially planned for discharge to [facility], however, they can not take the patient until Friday. Patient was advised to go to admission but he declined. Anticipate discharge tomorrow. Objective Vital Signs Date Time Temp Pulse Resp B/P (MAP) Pulse Ox O2 Delivery O2 Flow Rate FiO2 04/15/25 15:55 89 18 Room Air 0.0 04/15/25 15:47 88 21 04/15/25 15:00 97.9 119/79 (92) Result Diagram: 04/15/25 0551 04/15/25 0551 General: sleepy, disheveled, not in acute distress HEENT: PERRLA, no icterus, pallor, lymphadenopathy, carotid bruit Respiratory system: Bilateral vesicular breath sounds heard, bilateral basal Creps present, an oblique surgical scar present in the right lower chest region CVS: S1-S2 heard, no murmurs/rubs/gallop GI: Soft, nontender, no organomegaly, no guarding/rigidity, bowel sounds present Neuro: No focal neurological deficits present Extremities: No edema cyanosis clubbing Musculoskeletal: No deformities Skin: Warm and dry Pysch: Restless, normal affect and mood Coagulation Studies Laboratory Tests Test 04/13/25 21:04 04/14/25 10:36 D-Dimer 3.75 MG/L FEU (0-0.50) H D-Dimer Comment Prothrombin Time 18.0 SECONDS (9.0-12.0) H INR International Normalized Ratio 1.9 INR Coagulation Comments Assessment Assessment A 64 year old homeless male patient presented to ED with SOB due to acute exacerbation of heart failure with reduced ejection fraction. Plan Plan Acute hypoxemic respiratory failure Acute exacerbation of HFrEF Possible Acute COPD exacerbation Meth induced cardiomyopathy Consulted cardiology- Dr. Scott-advised to resume carvedilol Lasix, Entresto He also received LifeVest. Chest x-ray: Cardiomegaly with CHF Echo - EF 30-35%, RVSP 49 mmHg. Elevated proBNP 5400 Continue IV Lasix 40 mg b.i.d. re-evaluate in a.m. and titrate Lasix as required Optimization with GDM T: Carvedilol 3.125 mg p.o. b.i.d., Jardiance 10 mg p.o. daily, losartan 25 mg daily p.o., Aldactone 25 mg daily p.o. DuoNeb q.2h p.r.n., q.4h scheduled IV Solu-Medrol 40 mg b.i.d. Robitussin 100 mg PO q.6h PRN for cough Strict Is&Os Pulmonary embolism ruled out with CTA chest. Possible Gastroenteritis, under evaluation Likely not C diff as he is no more having bowel movements. Prerenal Acute kidney injury probably secondary to renal tubular stasis Elevated BUN and creatinine Continue to monitor BMP Currently patient appears to be fluid overloaded, therefore fluid restriction Follow up with urine Bessie raymundo Diabetes mellitus type 1, insulin-dependent A1c: 6.9 On Lantus 20 units SC q.h.s., 5 units Humalog fixed dose and high dose supplemental insulin protocol. HTN Blood pressure stable with carvedilol, losartan, Lasix. Continue the same. Substance abuse disorder History of Methamphetamine use Nicotine use disorder Alcohol use disorder Homeless UTox negative. However, the patient admitted to taking methamphetamines. On alcohol withdrawal protocol emergency services director and substance use navigator consulted History of MRSA in wound Continue isolation precautions Transaminasemia History of hepatitis LFTs trending down Awaiting hepatitis panel results Ultrasound abdomen-hepatic steatosis, no CBD dilation. MRCP could not be done as the patient is wearing a LifeVest Albumin, INR, platelets within normal limits acetaminophen, salicylate levels normal Code Status: DNR DVT Prophylaxis: Heparin Analgesia/Sedation: Tylenol Lines/Tubes: PIV Nutrition: Heart healthy diet PT: Ordered Prognosis: Guarded Disposition: Continue care in PCU. Anticipate discharge in the next 24-48 hours. Continue LifeVest. Continue Lasix. Allegra Hinds MD Internal Medicine Resident PGY-1 This note has been fully reviewed and amended by me. Isadora Ayala MD Internal Medicine Resident, PGY-2 Date of Service: Apr 15, 2025 Billing Provider: THA MARIA MD, PREETHI, RES Apr 15, 2025 17:49 ISADORA AYALA, RES Apr 15, 2025 20:23
[2025-04-16 05:13] LABS: HBSAG SCREEN Negative (Negative); HEP A AB, IGM Negative (Negative); HEP B CORE AB, IGM Negative (Negative); HEPATITIS C VIRUS ANTIBODY Reactive (Non Reactive)
== END 2025-04-15 20:52 | disposition home or self-care (01) | DRG 194 ==
LOC: ER 08:29 → ED HOLD 13:00 → PCU 3S 16:13
PROVIDERS: ADMIT Family Medicine; ATTEND Family Medicine
PROC: B32T1ZZ Computerized Tomography (CT Scan) of Left Pulmonary Artery using Low Osmolar Contrast (ICD-10-PCS; principal; 2025-04-14)
PROC: B3201ZZ Computerized Tomography (CT Scan) of Thoracic Aorta using Low Osmolar Contrast (ICD-10-PCS; 2025-04-14)
PROC: B32S1ZZ Computerized Tomography (CT Scan) of Right Pulmonary Artery using Low Osmolar Contrast (ICD-10-PCS; 2025-04-14)
PROC: 05HY33Z Insertion of Infusion Device into Upper Vein, Percutaneous Approach (ICD-10-PCS; 2025-04-14)
DX: I11.0 Hypertensive heart disease with heart failure (principal); N17.9 Acute kidney failure, unspecified; I42.7 Cardiomyopathy due to drug and external agent; I50.23 Acute on chronic systolic (congestive) heart failure; E10.9 Type 1 diabetes mellitus without complications; J43.9 Emphysema, unspecified; R07.89 Other chest pain; F17.210 Nicotine dependence, cigarettes, uncomplicated; F10.90 Alcohol use, unspecified, uncomplicated; Y90.9 Presence of alcohol in blood, level not specified; Z66 Do not resuscitate; R74.01 Elevation of levels of liver transaminase levels; Z79.899 Other long term (current) drug therapy; Z88.8 Allergy status to other drugs, medicaments and biological substances; Z88.0 Allergy status to penicillin; Z59.00 Homelessness unspecified
CPT/HCPCS: 36410; 36415; 71045; 71275; 76770; 76937; 80048; 80053; 80061; 80305; 80320; 80329; 81001; 82948; 83036; 83605; 83690; 83735; 83880; 84145; 84484; 85025; 85379; 85610; 86705; 86709; 86803; 87040; 87081; 87340; 87522; 93005; 93306; 93970; 94640; 94760; 96374; 96375; 99285; A4333; C1751; C1758; G0378; J1644; J1815; J1938; J2060; J2919; J3411; J3490; J7040; Q9967